=== PATIENT | male | born 1985 | race Caucasian/White ===

== ENCOUNTER 2022-09-27 19:59 | Emergency (ER) | payer OTHER ==
[2022-09-27] MEDS ORDERED: DEXAMETHASONE 10 MG/ML VIAL PO STA (20:22)
[2022-09-27] MEDS ORDERED: CHERRY SYRUP 10 ML UDC PO ONE (20:23)
--- NOTE | 2022-09-27 20:24 | ED Physician Documentation ---
History of Present Illness - Stated complaint Stated Complaint: SORE THROAT/COUGH - Chief complaint Chief Complaint: Heent - Additonal information Additional information: Patient is 37-year-old male presenting to the emergency department with report of subjective fever cough, sore throat, congestion x3-4 days. Reports multiple family members including a 2-year-old at home who had similar symptoms 1 week ago. States "this is just kicking my butt". Reports painful swallowing but denies any changes in voice or muffled voice. Denies any chest pain, shortness of breath, abdominal pain, nausea, vomiting, diarrhea, constipation. Reports has been using multiple [id number] medications including Motrin, Tylenol, Mucinex, Flonase. Review of Systems Constitutional: reports: Fever. denies: Chills Eyes: denies: Loss of vision Ears: denies: Loss of hearing Nose: denies: Rhinorrhea / runny nose Throat: denies: Dental pain / toothache Cardiac: denies: Chest pain / pressure Respiratory: reports: Cough. denies: Dyspnea GI: denies: Abdominal Pain, Nausea, Vomiting, Constipation, Diarrhea PD PAST MEDICAL HISTORY - Present Medications Home Medications: Ambulatory Orders Medication Instructions Recorded Confirmed Benzonatate [Tessalon] 200 mg PO ONCE #30 cap 09/27/22 Codeine Phosphate/Guaifenesin 5 ml PO Q8HR #50 ml 09/27/22 [Codeine-Guaifen 10-100 mg/5 ml] Ibuprofen [Motrin] 600 mg PO Q6H PRN #30 tab 09/27/22 Oxymetazoline HCl [12 Hour Nasal 30 ml NS Q4HR #30 ml 09/27/22 [place]] - Allergies Allergies/Adverse Reactions: Allergies Allergy/AdvReac Type Severity Reaction Status Date / Time amoxicillin Allergy Rash Verified 09/27/22 20:03 PD ED PE NORMAL - Vitals Vital signs reviewed: Yes - General General: Alert and oriented X 3, No acute distress, Well developed/nourished - HEENT HEENT: Atraumatic, PERRL, EOMI, Ears normal, Moist mucous membranes, Pharynx benign, Dentition benign, Other (Erythematous Tonsils without exudates) - Neck Neck: Supple, no meningeal sign - Cardiac Cardiac: RRR - Respiratory Respiratory: No respiratory distress - Abdomen Abdomen: Normal bowel sounds, Soft, Non tender - Male Male : Deferred - Rectal Rectal: Deferred - Back Back: No CVA TTP - Derm Derm: Normal color, No rash - Extremities Extremities: No deformity Results - Vitals Vitals: Vital Signs - 24 hr 09/27/22 09/27/22 20:03 21:17 Temperature 36.8 C Heart Rate 80 76 Respiratory 16 16 Rate Blood Pressure 110/63 116/61 O2 Saturation 98 99 Oxygen O2 Source Room air - Labs Labs: Laboratory Tests 09/27/22 09/27/22 20:22 20:22 Nasal Adenovirus (PCR) NOT DETECTED Nasal B. parapertussis DNA (PCR) NOT DETECTED Nasal Coronavir 229E PCR NOT DETECTED Nasal Coronavir HKU1 PCR NOT DETECTED Nasal Coronavir NL63 PCR NOT DETECTED Nasal Coronavir OC43 PCR NOT DETECTED Nasal Enterovir/Rhinovir PCR DETECTED A Nasal Influenza B PCR NOT DETECTED Nasal Influenza A PCR NOT DETECTED Nasal Parainfluen 1 PCR NOT DETECTED Nasal Parainfluen 2 PCR NOT DETECTED Nasal Parainfluen 3 PCR NOT DETECTED Nasal Parainfluen 4 PCR NOT DETECTED Nasal RSV (PCR) NOT DETECTED Nasal B.pertussis DNA PCR NOT DETECTED Nasal C.pneumoniae (PCR) NOT DETECTED Chad Human Metapneumo PCR NOT DETECTED Nasal M.pneumoniae (PCR) NOT DETECTED Nasal SARS-CoV-2 (PCR) NOT DETECTED Group A Strep Rapid Negative PD Medical Decision Making - ED course Complexity details: reviewed results, re-evaluated patient, d/w patient ED course: Patient 37-year-old male presenting to the emergency department with cough, congestion, sore throat. Afebrile, he medically stable. HEENT exam demonstrates erythematous tonsils without exudates. No indication deep space neck infection. Clear aeration in all lung lizama and benign soft abdominal exam noted in the emergency department. Patient given dose Decadron and oxymetazoline for symptomatic management. Also given dose of IM Toradol. Strep screening swab negative.At patient's request a respiratory viral panel has been sent however he did not wish to stay for these results. Will discharge at this time with medication for symptomatic management. Encourage careful follow-up with primary care. Work note provided. Clear return precautions given. Departure - Departure Disposition: 01 Home, Self Care Clinical Impression: Viral illness Instructions: ED Viral Syndrome Prescriptions: Oxymetazoline HCl [12 Hour Nasal [place]] 30 ml NS Q4HR #30 ml Codeine Phosphate/Guaifenesin [Codeine-Guaifen 10-100 mg/5 ml] 5 ml PO Q8HR #50 ml Ibuprofen [Motrin] 600 mg PO Q6H PRN #30 tab PRN Reason: Pain Benzonatate [Tessalon] 200 mg PO ONCE #30 cap Comments: Thank you for allowing us to care for you today at [facility]. Your prescriptions were sent electronically to [facility] in [place]. Please drink plenty fluids and get plenty of rest. He can follow-up tomorrow concerning the results of your respiratory viral panel. Please keep your follow-up appoint with your primary care doctor. If it anytime you have new or worsening symptoms please not hesitate to return. Forms: Activity restrictions Discharge Date/Time: 09/27/22 21:18
[2022-09-27] MEDS ORDERED: KETOROLAC 60 MG/2 ML VIAL IM STA (20:32)
[2022-09-27] MEDS: KETOROLAC 30 MG/ML VIAL IVP STA ×2 (20:41)
[2022-09-27 20:45] LABS: RAPID STREP SCREEN Negative (Negative)
[2022-09-27 21:19] VITALS: BP 116/61
[2022-09-27 21:23] LABS: B. PARAPERTUSSIS- RESP PCR PAN NOT DETECTED; B. PERTUSSIS- RESP PCR PANEL NOT DETECTED; C. PNEUMONIAE- RESP PCR PANEL NOT DETECTED; CORONAVIRUS 229E-RESP PCR NOT DETECTED; CORONAVIRUS HKU1-RESP PCR NOT DETECTED; CORONAVIRUS NL63-RESP PCR NOT DETECTED; CORONAVIRUS OC43-RESP PCR NOT DETECTED; HUMAN METAPNEUMOVIRUS NOT DETECTED; INFLUENZA A- RESP PCR PANEL NOT DETECTED; INFLUENZA B - RESP PCR PANEL NOT DETECTED; M. PNEUMONIAE- RESP PCR PANEL NOT DETECTED; PARAINFLUENZA VIRUS 1 NOT DETECTED; PARAINFLUENZA VIRUS 2 NOT DETECTED; PARAINFLUENZA VIRUS 3 NOT DETECTED; PARAINFLUENZA VIRUS 4 NOT DETECTED; RHINOVIRUS/ENTEROVIRUS DETECTED; RSV- RESP PCR PANEL NOT DETECTED; SARS-CoV-2 -RESP PCR PANEL NOT DETECTED
--- NOTE | 2022-10-01 12:54 | ED Physician Documentation ---
ED Addendum - Addendum Addendum: 10/01/22 12:54 Throat culture positive for group C strep. I E scribed Sonia to [facility] in [place]. I left a voicemail with results and recommendation to citrus picker antibiotics.
== END 2022-09-27 21:18 | disposition home or self-care (01) ==
LOC: ED 19:59
DX: B34.9 Viral infection, unspecified (principal); Z20.822 Contact with and (suspected) exposure to COVID-19
CPT/HCPCS: 87070; 87430; 87633; 96372; 96374; 99283; 99284; A9270